=== PATIENT | female | born 1970 | race Asian ===

== ENCOUNTER 2024-12-23 06:40 | Inpatient (IN) | payer BC, OTHER ==
[~2024-12-23] VITALS: Ht 157.5 cm; Wt 58.2 kg
[2024-12-23] MEDS ORDERED: methylPREDNISolone SOD SUCC 125 MG/2ML VIAL ONE (07:03)
[2024-12-23] MEDS: methylPREDNISolone SOD SUCC 125 MG/2ML VIAL IV ONE (07:05)
[2024-12-23] MEDS ORDERED: ALBUTEROL FS 2.5 MG/3 ML VIAL.NEB ONE ×2 (07:09→10:50)
[2024-12-23 07:14] VITALS: O2SAT 94
[2024-12-23] MEDS: IPRATROPIUM NEB FS 0.5 MG/2.5 ML AMPUL.NEB NEB ONE (07:14)
[2024-12-23] MEDS: ALBUTEROL FS 2.5 MG/3 ML VIAL.NEB CONTNEB ONE (07:14)
[2024-12-23 07:55] LABS: BASOPHILS # (AUTO) 0.1 K/uL (0.0-0.2); BASOPHILS % (AUTO) 0.5 % (0.0-2.0); EOSINOPHILS % (AUTO) 0.1 % (0.0-6.0); HEMATOCRIT 39 % (33-45); HEMOGLOBIN 13.1 g/dL (11.5-14.8); LYMPHOCYTES # (AUTO) 0.4 K/uL (0.8-4.8); LYMPHOCYTES % (AUTO) 3.7 % (20.0-44.0); MEAN CORPUSCULAR HEMOGLOBIN 26 PG (26.0-33.0); MEAN CORPUSCULAR HGB CONC 34 g/dl (31.0-36.0); MEAN CORPUSCULAR VOLUME 76 fL (82-100); MONOCYTES # (AUTO) 0.2 K/uL (0.1-1.30); MONOCYTES % (AUTO) 2.3 % (2.0-12.0); NEUTROPHILS # (AUTO) 9.3 K/uL (1.8-8.9); NEUTROPHILS % (AUTO) 93.4 % (43.0-81.0); PLATELET COUNT (AUTO) 163 K/uL (150-450); RED BLOOD CELL COUNT(AUTO) 5.07 MIL/uL (4.0-5.2); RED CELL DISTRIBUTION WIDTH 14.5 % (11.5-15.0)
[2024-12-23 08:00] VITALS: O2SAT 99
[2024-12-23 08:08] LABS: ALANINE AMINOTRANSFERASE 28 U/L (12-78); ALKALINE PHOSPHATASE 117 U/L (46-116); ASPARTATE AMINOTRANSFERASE 26 U/L (15-37); BILIRUBIN,DIRECT 0.1 mg/dL (0.0-0.2); BILIRUBIN,TOTAL 0.5 mg/dL (0.2-1.0); CALCIUM, SERUM 8.4 mg/dL (8.5-10.1); CARBON DIOXIDE 26 mmol/L (21-32); CHLORIDE 99 mmol/L (98-107); CREATININE 0.5 mg/dL (0.6-1.3); GLUCOSE 157 mg/dL (74-106); POTASSIUM 3.2 mmol/L (3.5-5.1); SODIUM SERUM 135 mmol/L (136-145); TOTAL PROTEIN, SERUM 7.5 g/dL (6.4-8.2); UREA NITROGEN, BLOOD 8 mg/dL (7-18)
[2024-12-23 10:54] VITALS: O2SAT 95
[2024-12-23] MEDS: ALBUTEROL FS 2.5 MG/3 ML VIAL.NEB NEB ONE (10:54)
[2024-12-23 11:51] VITALS: O2SAT 98
[2024-12-23] MEDS ORDERED: ALBU18HF2 IH (15:04)
[2024-12-23] MEDS ORDERED: POTASSIUM CHLORIDE 20 MEQ TAB.PRT.SR PO ONE (16:08)
[2024-12-23] MEDS ORDERED: LEVOFLOXACIN (250MG) 250 MG TABLET ONE (16:09)
[2024-12-23] MEDS: LEVOFLOXACIN (250MG) 250 MG TABLET PO SCH (16:14)
[2024-12-23] MEDS: POTASSIUM CHLORIDE 20 MEQ TAB.PRT.SR PO ONE (16:14)
[2024-12-23] MEDS ORDERED: ACETAMINOPHEN 325 MG TABLET PO PRN (19:00)
[2024-12-23] MEDS: ALBUTEROL FS 2.5 MG/3 ML VIAL.NEB NEB SCH (19:30)
[2024-12-23] MEDS: IPRATROPIUM NEB FS 0.5 MG/2.5 ML AMPUL.NEB NEB SCH (19:30)
[2024-12-23] MEDS ORDERED: MELATONIN 3 MG TABLET PO PRN (19:30)
[2024-12-23 20:00] VITALS: BP 121/64; TEMP 98.4; O2SAT 98
[2024-12-23] MEDS ORDERED: HOME MED MISCELLANEOUS PO PRN (22:00)
[2024-12-23] MEDS: methylPREDNISolone SOD SUCC 40 MG/ML VIAL IV SCH (23:05)
[2024-12-24] VITALS (9 sets, daily range): BP systolic 98–121; BP diastolic 58–81; TEMP 98–98.4; O2SAT 92–99
[2024-12-24] MEDS ORDERED: MELATONIN 3 MG TABLET PO PRN (02:30)
[2024-12-24 07:52] LABS: BASOPHILS % (AUTO) 0.1 % (0.0-2.0); HEMATOCRIT 42 % (33-45); HEMOGLOBIN 13.8 g/dL (11.5-14.8); LYMPHOCYTES # (AUTO) 0.4 K/uL (0.8-4.8); LYMPHOCYTES % (AUTO) 2.6 % (20.0-44.0); MEAN CORPUSCULAR HEMOGLOBIN 25 PG (26.0-33.0); MEAN CORPUSCULAR HGB CONC 33 g/dl (31.0-36.0); MEAN CORPUSCULAR VOLUME 77 fL (82-100); MONOCYTES # (AUTO) 0.3 K/uL (0.1-1.30); MONOCYTES % (AUTO) 1.9 % (2.0-12.0); NEUTROPHILS # (AUTO) 15.1 K/uL (1.8-8.9); NEUTROPHILS % (AUTO) 95.4 % (43.0-81.0); PLATELET COUNT (AUTO) 165 K/uL (150-450); RED BLOOD CELL COUNT(AUTO) 5.45 MIL/uL (4.0-5.2); RED CELL DISTRIBUTION WIDTH 15.1 % (11.5-15.0); WHITE BLOOD COUNT (AUTO) 15.8 K/uL (4.3-11.0)
[2024-12-24 08:03] LABS: CALCIUM, SERUM 9.2 mg/dL (8.5-10.1); CREATININE 0.6 mg/dL (0.6-1.3); POTASSIUM 4.8 mmol/L (3.5-5.1)
[2024-12-24] MEDS: ENOXAPARIN SODIUM 40 MG/0.4 ML DISP.SYRIN SQ SCH (08:21)
[2024-12-24] MEDS: methylPREDNISolone SOD SUCC 40 MG/ML VIAL IV SCH (13:23)
== END 2024-12-24 16:10 | disposition left against medical advice (07) | DRG 202 ==
LOC: ER 06:44 → TELE1 16:38
PROVIDERS: ADMIT Internal Medicine; ATTEND Internal Medicine
DX: J45.901 Unspecified asthma with (acute) exacerbation (principal); J96.01 Acute respiratory failure with hypoxia; E87.20 Acidosis, unspecified; I24.89 Other forms of acute ischemic heart disease; E87.6 Hypokalemia; Z53.29 Procedure and treatment not carried out because of patient's decision for other reasons; Z20.822 Contact with and (suspected) exposure to COVID-19
CPT/HCPCS: 36415; 71045-TC; 80048-TC; 80061-TC; 80076-TC; 83605-TC; 83880; 84484-TC; 85025-TC; 87040-TC; 93307-TC; 94760-TC; 94799-TC; G0378; J1650; J2919